=== PATIENT | female | born 1955 | race Caucasian/White ===

== ENCOUNTER 2017-03-15 09:18 | Emergency (ER) | payer BC ==
[~2017-03-15] VITALS: Ht 167.6 cm; Wt 71.0 kg
[2017-03-15 09:21] VITALS: BP 128/60; PULSE 74; RESP 16; TEMP 97.8; O2SAT 98
[2017-03-15] MEDS ORDERED: LANS30CA PO (09:44)
[2017-03-15] MEDS ORDERED: ATOR1TAB18 PO (09:44)
[2017-03-15] MEDS ORDERED: BUPR300T PO (09:44)
[2017-03-15] MEDS ORDERED: LORA1TAB12 PO (09:44)
[2017-03-15] MEDS ORDERED: ESTR0.5T PO (09:44)
[2017-03-15] MEDS ORDERED: LORazepam 2 MG/ML VIAL IV PUSH ONE (09:45)
[2017-03-15] MEDS ORDERED: SODIUM CHLORID 0.9% 500 ML INJ 500 ML IV ONE (09:45)
[2017-03-15] MEDS ORDERED: SODIUM CHLORIDE 0.9% FLUSH 10 ML FLUSH IVF PRN (09:45)
[2017-03-15 09:48] VITALS: BP 151/60; PULSE 77; RESP 18; O2SAT 98
[2017-03-15 09:49] VITALS: O2SAT 98
--- NOTE | 2017-03-15 09:52 | PD ---
HPI Chief Complaint: Respiratory Symptoms Time Seen by Provider: 09:28 Travel History International Travel<30 days: No Contact w/Intl Traveler<30days: No Traveled to known affect area: No History of Present Illness HPI This is a 61-year-old woman who presents to the emergency department complaining of waking up with a burning sensation in her chest and radiates to both arms and her back between her shoulder blades. She states she gets it in the mornings, maybe 10 times or so in the past 6 weeks. Normally resolves on its own. She started getting symptoms like this all the way back in November. On December 12 for she went [place] for the same symptoms and had a nuclear stress test that was negative. In general she's felt very rundown and exhausted recently. She fortunately lost her sister just recently in the past several weeks. Her sister following a cardiac bypass. The patient has been dealing with her state, has a history of depression and anxiety, and is been having worsening depression and anxiety symptoms associated with this. She's also had some feelings of heart pounding and palpitations during the day. She does have a history of CAD with previous stent. She follows with Dr. Jang. She does have a history of gastritis, she's had some worsening reflux symptoms recently. She does take a PPI daily. No history of ulcer disease. History Past Medical History Narrative Medical CAD Depression/anxiety Hyperlipidemia Social History Alcohol Use: Yes (wine on rare occasion) Tobacco Use: No (quit 40 years ago) Allergies-Medications (Allergen,Severity, Reaction): Coded Allergies: No Known Allergies (Unverified , 03/15/17) Reported Meds & Prescriptions Reported Meds & Active Scripts Active Reported Lansoprazole 30 Mg Capdr 30 Mg PO DAILY Lorazepam 1 Mg Tab 1 Mg PO BID Atorvastatin (Atorvastatin Calcium) 80 Mg Tab 80 Mg PO HS Estradiol 0.5 Mg Tab 0.5 Mg PO DAILY Bupropion HCl ER 24 HR (Bupropion HCl) 300 Mg Tab 300 Mg PO DAILY Review of Systems Except as stated in HPI: all other systems reviewed are Neg Physical Exam Narrative GENERAL: 60 year-old woman, no acute distress. SKIN: Focused skin assessment warm/dry. HEAD: Atraumatic. Normocephalic. CARDIOVASCULAR: Regular rate and rhythm. No murmur appreciated. Symmetric peripheral pulses. RESPIRATORY: No accessory muscle use. Clear to auscultation. Breath sounds equal bilaterally. GASTROINTESTINAL: Abdomen soft, non-tender, nondistended. Hepatic and splenic margins not palpable. MUSCULOSKELETAL: No obvious deformities. No clubbing. No cyanosis. No edema. NEUROLOGICAL: Awake and alert. No obvious cranial nerve deficits. Motor grossly within normal limits. Normal speech. PSYCHIATRIC: Anxious and tearful. Data Data Last Documented VS Vital Signs Date Time Temp Pulse Resp B/P Pulse Ox O2 Delivery O2 Flow Rate FiO2 03/15/17 10:53 68 16 128/53 98 Room Air 03/15/17 09:21 97.8 Orders Electrocardiogram (03/15/17 09:43) Complete Blood Count With Diff (03/15/17 09:43) Comprehensive Metabolic Panel (03/15/17 09:43) Magnesium (Mg) (03/15/17 09:43) Troponin I (03/15/17 09:43) Lipase (03/15/17 09:43) Chest, Single Ap (03/15/17 09:43) Ecg Monitoring (03/15/17 09:43) Bilateral Bp Monitoring (03/15/17 09:43) Iv Access Insert/Monitor (03/15/17 09:43) Oximetry (03/15/17 09:43) Oxygen Administration (03/15/17 09:43) Sodium Chloride 0.9% Flush (Ns Flush) (03/15/17 09:45) Sodium Chlorid 0.9% 500 Ml Inj (Ns 500 M (03/15/17 09:45) Lorazepam Inj (Ativan Inj) (03/15/17 09:45) Labs Laboratory Tests Test 03/15/17 10:03 White Blood Count 6.9 TH/MM3 Red Blood Count 4.57 MIL/MM3 Hemoglobin 13.1 GM/DL Hematocrit 39.7 % Mean Corpuscular Volume 86.8 FL Mean Corpuscular Hemoglobin 28.8 PG Mean Corpuscular Hemoglobin 33.2 % Concent Red Cell Distribution Width 13.5 % Platelet Count 221 TH/MM3 Mean Platelet Volume 8.7 FL Neutrophils (%) (Auto) 65.1 % Lymphocytes (%) (Auto) 27.3 % Monocytes (%) (Auto) 5.9 % Eosinophils (%) (Auto) 0.6 % Basophils (%) (Auto) 1.1 % Neutrophils # (Auto) 4.5 TH/MM3 Lymphocytes # (Auto) 1.9 TH/MM3 Monocytes # (Auto) 0.4 TH/MM3 Eosinophils # (Auto) 0.0 TH/MM3 Basophils # (Auto) 0.1 TH/MM3 CBC Comment AUTO DIFF Differential Comment AUTO DIFF CONFIRMED Sodium Level 143 MEQ/L Potassium Level 4.1 MEQ/L Chloride Level 108 MEQ/L Carbon Dioxide Level 26.9 MEQ/L Anion Gap 8 MEQ/L Blood Urea Nitrogen 16 MG/DL Creatinine 0.57 MG/DL Estimat Glomerular Filtration 107 ML/MIN Rate Random Glucose 89 MG/DL Calcium Level 9.1 MG/DL Magnesium Level 2.4 MG/DL Total Bilirubin 0.7 MG/DL Aspartate Amino Transf 20 U/L (AST/SGOT) Alanine Aminotransferase 26 U/L (ALT/SGPT) Alkaline Phosphatase 86 U/L Troponin I LESS THAN 0.02 NG/ML Total Protein 6.7 GM/DL Albumin 3.6 GM/DL Lipase 113 U/L MDM Medical Decision Making Medical Screen Exam Complete: Yes Emergency Medical Condition: Yes Interpretation(s) My review of EKG: Normal sinus rhythm at a rate of 70, normal axis, normal intervals, no acute ischemia. LABS: CBC is unremarkable. CMP is unremarkable. Troponins negative. Lipase is normal. Chest x-ray: No acute cardiopulmonary disease. Differential Diagnosis Anxiety, gastritis, ACS, pericarditis, hepatobiliary disease, pancreatitis, dissection, PE, other Narrative Course Medical decision making Is a 60 year-old woman presents emergency Department with burning discomfort in her chest a radius her arms. She's had this several times over the past several weeks. She's had a stress test with for the same symptoms that was negative. She looks well. She is under a lot of stress. She has also a history of anxiety and gastritis or reflux. We'll get results of her stress test from the [facility]. We'll recheck EKG and labs. She looks overall well. She does not have any history of exertional symptoms that would strongly suggest ACS. Suspicious this is probably GI and/or anxiety related. We'll discuss close outpatient follow-up with cardiology pending results of initial testing. Diagnosis Primary Impression: Burning chest pain Additional Impression: Gastritis Qualified Code: K29.00 - Acute gastritis without hemorrhage, unspecified gastritis type Additional Instructions: Return to the emergency department for any worsening chest pain, or any chest pain with exertion. Follow-up with Dr. Jang in the next 2-4 days. Continue current medications. Take sucralfate as prescribed. Med/Other Pt SpecificInfo: Prescription(s) given Scripts Sucralfate 1 Gm Tab1 Gm PO TID #90 TAB Ref 0 on empty stomach Prov:Kyaw Crump MD 03/15/17 Disposition: 01 DISCHARGE HOME Condition: Stable Kyaw Crump MD Mar 15, 2017 09:52
--- NOTE | 2017-03-15 10:08 | RADRPT ---
EXAM DATE/TIME: 03/15/2017 09:58 [facility] COMPARISON: No previous studies available for comparison. INDICATIONS : Short of breath. Burning in the chest. MEDICAL HISTORY : Hypercholesterolemia. Gastroesophageal reflux disease. SURGICAL HISTORY : Cardiac cath w/ stent placement ENCOUNTER: Initial ACUITY: 2 weeks PAIN SCORE: 7/10 LOCATION: chest FINDINGS: A single view of the chest demonstrates the lungs to be symmetrically aerated without evidence of mas s, infiltrate or effusion. The cardiomediastinal contours are unremarkable. Osseous structures are intact. CONCLUSION: 1. No acute cardiopulmonary disease. Jason Ramirez MD on March 15, 2017 at 10:06 Board Certified Radiologist. This report was verified electronically.
[2017-03-15 10:09] LABS: AUTOMATED NEUTROPHIL # 4.5 TH/MM3 (1.8-7.7); BASOPHIL # 0.1 TH/MM3 (0-0.2); BASOPHIL % 1.1 % (0.0-2.0); EOSINOPHIL % 0.6 % (0.0-4.0); HEMATOCRIT 39.7 % (35.0-46.0); LYMPH % 27.3 % (9.0-44.0); LYMPHOCYTE # 1.9 TH/MM3 (1.0-4.8); MEAN CELL VOLUME 86.8 FL (80.0-100.0); MEAN CORPUSCULAR HEMOGLOBIN 28.8 PG (27.0-34.0); MEAN CORPUSCULAR HGB CONC 33.2 % (32.0-36.0); MONO % 5.9 % (0.0-8.0); NEUT % 65.1 % (16.0-70.0); PLATELET COUNT 221 TH/MM3 (150-450); RED BLOOD COUNT 4.57 MIL/MM3 (4.00-5.30); RED CELL DISTRIBUTION WIDTH 13.5 % (11.6-17.2); WHITE BLOOD COUNT 6.9 TH/MM3 (4.0-11.0)
[2017-03-15 10:10] LABS: HEMO FLAGS AUTO DIFF
[2017-03-15 10:18] LABS: CHLORIDE 108 MEQ/L (98-107); POTASSIUM 4.1 MEQ/L (3.5-5.1); SODIUM (NA) 143 MEQ/L (136-145)
[2017-03-15 10:22] LABS: ANION GAP 8 MEQ/L (5-15); BICARBONATE 26.9 MEQ/L (21.0-32.0); BLOOD UREA NITROGEN 16 MG/DL (7-18); MAGNESIUM 2.4 MG/DL (1.5-2.5)
[2017-03-15 10:24] LABS: ALT (GPT) 26 U/L (10-53); AST (GOT) 20 U/L (15-37)
[2017-03-15 10:25] LABS: GLOMERULAR FILTRATION RATE 107 ML/MIN (>89)
[2017-03-15 10:26] LABS: TOTAL BILIRUBIN ADULT 0.7 MG/DL (0.2-1.0)
[2017-03-15 10:27] LABS: ALKALINE PHOSPHATASE 86 U/L (45-117)
[2017-03-15 10:44] LABS: SCAN/DIFF AUTO DIFF CONFIRMED
[2017-03-15 10:53] VITALS: BP 128/53; PULSE 68; RESP 16; O2SAT 98
[2017-03-15] MEDS ORDERED: SUCR1TAB PO (11:01)
--- NOTE | 2017-03-15 12:13 | EKG ---
Date Performed: 03/15/2017 Time Performed: 09:51:58 PTAGE: 61 years EKG: Sinus rhythm NORMAL ECG NO PREVIOUS TRACING DOCTOR: Jh Toscano Interpretating Date/Time 03/15/2017 12:12:03
== END 2017-03-15 11:48 | disposition home or self-care (01) ==
LOC: PHED 09:18
DX: R07.9 Chest pain, unspecified (principal); K29.00 Acute gastritis without bleeding; F41.8 Other specified anxiety disorders; E78.5 Hyperlipidemia, unspecified
CPT/HCPCS: 71010; 80053; 83690; 83735; 84484; 85025; 93005; 96361; 96374; 99285; J2060; J7040

== ENCOUNTER → 2017-10-24 | Outpatient (CLI) | payer BC ==
[~2017-10-24] MED LIST: ASPI81CH6 CHEW; ASPI81TA23 PO; ATOR80TA45 PO; BUPR300T PO; ESTR0.5T PO; HYDR-3288 PO; LANS30CA PO; LORA1TAB12 PO; MULT-65 PO; PROT40TA PO; SUCR1TAB PO
== END ==
LOC: CPRE 11:36
PROVIDERS: ATTEND Orthopaedic Surgery Sports Medicine
DX: Z01.818 Encounter for other preprocedural examination (principal); M17.12 Unilateral primary osteoarthritis, left knee

== ENCOUNTER 2017-11-07 05:24 | Inpatient (IN) | payer BC ==
[~2017-11-07] VITALS: Ht 167.6 cm; Wt 70.9 kg
[~2017-11-07 05:24] MED LIST changes: -ASPI81CH6 CHEW; -ESTR0.5T PO; -HYDR-3288 PO; -LANS30CA PO; -SUCR1TAB PO
[2017-11-07] MEDS ORDERED: POVIDONE IODINE 7.5% SCRUB 118 ML BOTTLE TOPICAL SCH (06:00)
[2017-11-07] MEDS ORDERED: CHLORHEXIDINE GLUCONATE 4% SOLN 120 ML BTL TOPICAL SCH (06:00)
[2017-11-07] MEDS ORDERED: VANCOMYCIN 1000 MG/NS 250 ML (for <70 kg) IV SCH ×2 (06:00)
[2017-11-07] MEDS ORDERED: DEXAMETHASONE SOD PHOS PF 10 MG/ML VIAL IV PUSH ONE (06:00)
[2017-11-07] MEDS ORDERED: GENTAMICIN SULFATE 80 MG/2 ML VIAL ONE (06:15)
[2017-11-07] MEDS ORDERED: VANCOMYCIN 1 GM/200 ML INJ 200 ML IV SCH (06:15)
[2017-11-07] MEDS ORDERED: ACETAMINOPHEN 1000 MG/100 ML 100 ML IV ONE (06:56)
[2017-11-07] MEDS ORDERED: PROPOFOL 500 MG/50 ML INJ 0 ML ONE (06:57)
[2017-11-07] MEDS ORDERED: HYDR-3288 PO (06:57)
[2017-11-07] MEDS ORDERED: ASPI81CH6 CHEW (06:58)
[2017-11-07] MEDS ORDERED: ONDANSETRON HCL 4 MG/2 ML VIAL IVP PRN (07:00)
[2017-11-07] MEDS ORDERED: Post-op Orders (for Pharmacy) XX ONE (07:00)
[2017-11-07] MEDS ORDERED: MORPHINE SULFATE 4 MG/ML INJ IV PUSH PRN (07:00)
[2017-11-07] MEDS ORDERED: BISACODYL 10 MG SUPP RECTAL PRN (07:00)
[2017-11-07] MEDS ORDERED: ACETAMINOPHEN/HYDROcodone 325 MG/7.5 MG TAB PO PRN (07:00)
[2017-11-07] MEDS ORDERED: diphenhydrAMINE HCL 50 MG/ML VIAL IV PUSH PRN (07:00)
[2017-11-07 07:26] VITALS: PULSE 68
[2017-11-07] MEDS ORDERED: METOPROLOL TARTRATE 25 MG TAB PO PRN (07:30)
[2017-11-07] MEDS ORDERED: LACTATED RINGER'S 1000 ML IV PRN (07:30)
[2017-11-07] MEDS ORDERED: CEFAZOLIN INJ 2,000 MG in SODIUM CHLORIDE 0.9% INJ 100 ML IV SCH (07:30)
[2017-11-07] MEDS ORDERED: SODIUM CHLORID 0.9% 500 ML IV PRN (07:30)
[2017-11-07] MEDS ORDERED: BUPIVACAINE LIPOSOME PF 1.3% 20 ML VIAL ONE (07:34)
[2017-11-07] MEDS ORDERED: MIDAZOLAM HCL 5 MG/5 ML VIAL ONE (07:34)
[2017-11-07] MEDS ORDERED: SODIUM CHLORIDE 0.9% IV SCH (08:30)
[2017-11-07] MEDS ORDERED: ROPIVACAINE PERI-ARTICULAR INJECTION. P-ARTICULR SCH ×5 (08:30)
[2017-11-07] MEDS ORDERED: TRANEXAMIC ACID IV SCH (08:30)
[2017-11-07] MEDS ORDERED: TRANEXAMIC PERI-ARTICULAR 3,000 MG/NS 100 ML P-ARTICULR SCH ×2 (08:30)
[2017-11-07] MEDS ORDERED: DO NOT ADM ANY ANTICOAGULANT DRUGS PRN (10:09)
--- NOTE | 2017-11-07 10:20 | MP ---
cc: Kristopher Canseco MD DATE OF OPERATION: 11/07/2017 PREOPERATIVE DIAGNOSIS: Left knee osteoarthritis. POSTOPERATIVE DIAGNOSIS: Left knee osteoarthritis. PROCEDURE PERFORMED: Left total knee arthroplasty. SURGEON: Kristopher Canseco MD, UNLOADING CHECKER: RUBI Benavidez. ANESTHESIA: General with a femoral nerve block. ESTIMATED BLOOD LOSS: 100 mL. TOURNIQUET TIME: 21 minutes at 250 mmHg. COMPLICATIONS: None. IMPLANTS USED: DePuy Attune size 6 narrow posterior stabilized femoral component, size 5 rotating platform tibial baseplate, size 5 mm polyethylene tibial insert, size 38 patella. JUSTIFICATION: This patient is a 62-year-old female with a history of severe end-stage osteoarthritis involving the left knee. She has severe disabling pain with standing, walking, ambulation, weightbearing activities and severe pain at rest. She has failed greater than 3 months of nonoperative conservative treatment to including medication therapy, injections, ambulatory assisted aid, home exercise program, activity modification, weight loss. X-ray of the left knee reveals severe end-stage osteoarthritis with joint space narrowing, subchondral sclerosis, subchondral cyst, osteophyte formation with subluxation and deformity. The patient counseled on the risks, benefits and alternatives of a total knee arthroplasty. The risks discussed, which include, but are not limited to anesthesia, bleeding, infection, damage to nerves, blood vessels, pain, stiffness, failure of components, blood clots, pulmonary embolism and even . The patient's pain is severe. She favors the benefits over the risks and she did wish to proceed with surgery. DETAILS OF PROCEDURE: Written consent was obtained. The patient identified by name, taken to the operating room, placed supine on the operating room table. General anesthesia was administered as well as 2 grams of IV Ancef and 1 gram of IV vancomycin. A well-padded tourniquet was placed on the left thigh. The left lower extremity prepped and draped using Isopropyl alcohol, Hibiclens solution and ChloraPrep solution. After a time-out was performed, an Esmarch bandage was used to exsanguinate the left lower extremity. The tourniquet was inflated to 250 mmHg. A longitudinal incision made over the anterior aspect of the left knee. A medial parapatellar arthrotomy was performed. The patella was everted. A patellar resection guide was used to resect 9 mm of patella. A size 38 mm guide was placed and three drills were placed and a 38 mm trial fit well. Attention was turned to the femur where intramedullary guide was placed and the distal femoral guide was set to remove 10 mm of distal femur, 5 degrees off the anatomic valgus axis alignment. An oscillating saw was used to perform the distal femoral cut. Attention was turned to the tibia where an extramedullary tibial guide was set to remove 5 mm off the lowest portion of the medial tibial plateau. The tibial guide was pinned in place and the tibial cut was performed. A 5 mm spacer block showed full extension. Attention was turned back to the femur where the AP sizing block measured a size 6. The anterior reference 3-degree external rotation guide was used to pin the size [address] Anterior, posterior and chamfer cuts were performed. A size 6 PCL box icer was pinned in place and the PCL was box cut with an oscillating saw. The medial and lateral meniscus remnants were removed, as well as bone and soft tissue debris from the posterior portion of the knee. A size 5 tibial base was pinned in place and tibia was drilled and punched. Trial components were evaluated and final components cemented in place. With the current components, the leg could achieve full extension to 0 degrees, flexion to 140. No evidence of tibial liftoff. Varus valgus balance appeared appropriate and symmetric. With the tourniquet deflated, Bovie cautery was used for hemostasis. The surgical wound was thoroughly irrigated with sterile saline antibiotic impregnated solution. The arthrotomy incision closed with #1 Vicryl suture, subcutaneous layer with 2-0 Vicryl, skin was closed with Dermabond. Sterile dressings applied. The patient tolerated the procedure well with no intraoperative complications noted. Andrés Branham, Physician Pediatric Licensed Practical Nurse Certified was present for the entire procedure to include patient positioning and the procedure itself. The medical necessity of a physician personnel security assistant was indicated in this case due to the complexity of the procedure. He assisted with appropriate manipulation of the leg and also retraction of muscles, tendons, bone and neurovascular structures. He assisted in preparation bone and also implantation of the prosthetic replacement. Kristopher Canseco MD JWM/ERNESTO , 09:46 AM , 10:19 AM
[2017-11-07] MEDS ORDERED: *morphine SULFATE 8 MG/ML PERIprocedure ONLY ONE ×2 (10:41→10:57)
--- NOTE | 2017-11-07 10:51 | RADRPT ---
EXAM DATE/TIME: 11/07/2017 10:19 [facility] COMPARISON: No previous studies available for comparison. INDICATIONS : Post op left arthroplasty. MEDICAL HISTORY : Hypercholesterolemia. Gastroesophageal reflux disease. SURGICAL HISTORY : Cardiac cath w/ stent placement. ENCOUNTER: Initial ACUITY: 1 day PAIN SCORE: Non-responsive. LOCATION: Left knee FINDINGS: AP and lateral views of the left knee were obtained and demonstrate that the patient is status post t otal knee arthroplasty. The femoral and tibial components are intact and in normal alignment. There a re postoperative changes involving the patella. There are multiple areas of gas in the adjacent soft tissues with soft tissue swelling. There is mild overlying artifact. CONCLUSION: Expected postsurgical changes status post arthroplasty. Edgar Bonds MD on November 07, 2017 at 10:47 Board Certified Radiologist. This report was verified electronically.
[2017-11-07] MEDS: SODIUM CHLOR 0.9% 1000 ML INJ 1,000 ML IV SCH ×2 (11:00→18:30)
--- NOTE | 2017-11-07 12:47 | HHI.DCPOC ---
Discharge Care Plan Diagnosis: (1) Primary localized osteoarthrosis, lower leg Your Health Problems Are: Difficulty with ADL Goals to Promote Your Health * To prevent worsening of your condition and complications * To maintain your health at the optimal level Directions to Meet Your Goals Take your medications as prescribed Follow your dietary instruction Follow activity as directed Keep your appointments as scheduled Take your immunizations and boosters as scheduled If your symptoms worsen call your PCP, if no PCP go to Urgent Care Center or Emergency Room Smoking is Dangerous to Your Health. Avoid second hand smoke Call the 24-hour hour crisis hotline for domestic abuse at Kristopher Branham Nov 07, 2017 12:47
--- NOTE | 2017-11-07 13:01 | PD.CONS ---
HPI Service [facility] Consult Requested By DR GARY WOLFE MD Reason for Consult MEDICAL MANAGEMENT Primary Care Physician Brian Robbins M.D. Diagnoses: (1) Anxiety (2) Depression (3) GERD (gastroesophageal reflux disease) (4) Primary localized osteoarthrosis, lower leg (5) Gastritis (6) CAD (coronary artery disease) (7) Hypercholesterolemia History of Present Illness Patient is a 62-year-old female, Who underwent left total knee arthroplasty due to severe osteoarthritis. Patient has a past medical history including an extensive history of coronary artery disease with stent, hyperlipidemia, GERD, anxiety, depression, and osteoarthritis. We have been asked to see her regarding medical management. Her primary care physician does not come to the hospital Review of Systems Constitutional: DENIES: Diaphoretic episodes, Fatigue, Fever, Weight gain, Weight loss, Chills, Dizziness, Change in appetite, Night Sweats Endocrine: DENIES: Abnorml menstrual pattern, Heat/cold intolerance, Polydipsia Eyes: DENIES: Blurred vision, Diplopia, Eye inflammation, Eye pain, Vision loss , Photosensitivity Ears, nose, mouth, throat: DENIES: Tinnitus, Hearing loss, Vertigo, Nasal discharge, Oral lesions, Throat pain, Hoarseness, Odynophagia Respiratory: DENIES: Apneas, Cough, Snoring, Wheezing, Hemoptysis, Sputum production, Shortness of breath Cardiovascular: DENIES: Chest pain, Palpitations, Syncope, Dyspnea on Exertion , PND, Lower Extremity Edema, Orthopnea Gastrointestinal: DENIES: Abdominal pain, Black stools, Bloody stools, Constipation, Diarrhea, Nausea, Vomiting, Difficulty Swallowing Genitourinary: DENIES: Abnormal vaginal bleeding, Dysmenorrhea, Dyspareunia, Vaginal discharge Musculoskeletal: COMPLAINS OF: Joint pain, Back pain, DENIES: Muscle aches, Stiffness, Joint Swelling, Neck pain Integumentary: DENIES: Abnormal pigmentation, Pruritus, Rash, Nail changes, Breast masses, Breast skin changes Hematologic/lymphatic: DENIES: Bruising, Lymphadenopathy Immunologic/allergic: DENIES: Eczema, Urticaria Neurologic: DENIES: Abnormal gait, Headache, Localized weakness, Paresthesias, Seizures, Speech Problems, Tremor, Poor Balance Psychiatric: COMPLAINS OF: Anxiety, Depression, DENIES: Confusion, Mood changes , Hallucinations, Agitation, Suicidal Ideation, Homicidal Ideation, Delusions Except as stated in HPI: all other systems reviewed are Neg Past Family Social History Allergies: Coded Allergies: No Known Allergies (Verified Allergy, Unknown, 11/07/17) Past Medical History Coronary artery disease with history of stenting. Hypercholesterolemia GERD depression Anxiety Past Surgical History Tonsillectomy Stenting of the coronary artery Bilateral cataract surgery Cholecystectomy Appendectomy Hysterectomy Left hand surgery due to a cat bite Reported Medications Reported Meds & Active Scripts Active Aspirin Low Dose (Aspirin) 81 Mg Chew 81 Mg CHEW BID 30 Days [place] (Hydrocodone-Acetaminophen) 7.5-325 mg Tab 1-2 Tab PO Q6H PRN Reported Multi-Vitamin Daily (Multiple Vitamin) 1 Tab Tab 1 Tab PO DAILY Protonix (Pantoprazole Sodium) 40 Mg Tab 40 Mg PO DAILY Aspirin EC (Aspirin) 81 Mg Tabdr 81 Mg PO DAILY Lorazepam 1 Mg Tab 1 Mg PO BID Atorvastatin (Atorvastatin Calcium) 80 Mg Tab 80 Mg PO HS Bupropion HCl ER 24 HR (Bupropion HCl) 300 Mg Tab 300 Mg PO DAILY Active Ordered Medications Current Medications Povidone Iodine (Betadine 7.5% Scrub) 1 applic ONCE TOPICAL Last administered on 11/07/17at 06:30; Start 11/07/17 at 06:00; Stop 11/10/17 at 05:59 Chlorhexidine Gluconate (Hibiclens 4% Top Soln) 1 applic ONCE TOPICAL ; Start at 06:00; Stop 11/10/17 at 05:59 Dexamethasone Sodium Phosphate (Decadron Pf Inj) 10 mg ONCE ONCE IV PUSH Last administered on 11/07/17at 07:12; Start 11/07/17 at 06:00; Stop 11/07/17 at 06:01 ; Status DC Cefazolin Sodium 2000 mg/Sodium Chloride 120 ml @ 240 mls/hr PHOTOGRAPHER HELPER IV Last administered on 11/07/17at 08:10; Start 11/07/17 at 07:30; Stop 11/08/17 at 07:29 Vancomycin HCl 1000 mg/Sodium Chloride 250 ml @ 250 mls/hr PHOTOGRAPHER HELPER IV ; Start 11/07/17 at 06:00; Stop 11/10/17 at 05:59; Status Cancel Tranexamic Acid 1064 mg/Sodium Chloride 110.64 ml @ 200 mls/ hr ONCE IV Last administered on 11/07/17at 08:27; Start 11/07/17 at 08:30; Stop 11/07/17 at 14:30 Tranexamic Acid 3000 mg/Sodium Chloride 130 ml @ 260 mls/hr ONCE P-ARTICULR Last administered on 11/07/17at 08:58; Start 11/07/17 at 08:30; Stop 11/07/17 at 14:30 Vancomycin/Sodium Chloride 200 ml @ 250 mls/hr PHOTOGRAPHER HELPER IV Last administered on 11/07/17at 08:05; Start 11/07/17 at 06:15; Stop 11/08/17 at 06:14 Ropivacaine 24.63 ml/Ketorolac Tromethamine 30 mg/Epinephrine HCl 0.5 mg/ Clonidine 80 mcg/ Sodium Chloride 100 ml @ 200 mls/hr ONCE P-ARTICULR Last administered on 11/07/17at 08:58; Start 11/07/17 at 08:30; Stop 11/07/17 at 14:30 Gentamicin Sulfate (Gentamicin Inj) 240 mg STK-MED ONCE .ROUTE Last administered on 11/07/17at 08:58; Start 11/07/17 at 06:15; Stop 11/07/17 at 06:16 ; Status DC Atorvastatin Calcium (Lipitor) 80 mg HS PO ; Start 11/07/17 at 21:00 Bupropion HCl (Wellbutrin Sr) 150 mg BID PO ; Start 11/08/17 at 09:00 Lorazepam (Ativan) 1 mg BID PO ; Start 11/07/17 at 21:00 Pantoprazole Sodium (Protonix) 40 mg DAILY PO ; Start 11/08/17 at 09:00 Sodium Chloride 1,000 ml @ 100 mls/hr Q10H IV Last administered on 11/07/17at 11:00; Start 11/07/17 at 08:30 Cefazolin Sodium 1000 mg/Sodium Chloride 100 ml @ 200 mls/hr Q6H IV ; Start at 14:00; Stop 11/08/17 at 02:29 Miscellaneous Information (Post-op Orders (for Pharmacy)) STAT ONCE XX ; Start 11/07/17 at 07:00; Stop 11/07/17 at 08:16; Status DC Enoxaparin Sodium (Lovenox Inj) 40 mg Q24H SQ ; Start 11/08/17 at 09:00; Stop at 09:01 Morphine Sulfate (Morphine Inj) 3 mg Q3H PRN IV PUSH Pain >7 when off PROCUREMENT INTERN; Start 11/07/17 at 07:00 Acetaminophen/ Hydrocodone Bitart ([place] 7.5-325 Mg) 1 tab Q4H PRN PO PAIN LESS THAN 5 ON SCALE; Start 11/07/17 at 07:00 Acetaminophen/ Hydrocodone Bitart ([place] 7.5-325 Mg) 2 tab Q4H PRN PO PAIN SCALE 5 TO 10; Start 11/07/17 at 07:00 Multivitamins/ Minerals Therapeutic (Theragran M Tab) 1 tab BID PO ; Start 11/08 at 21:00; Stop 01/07/18 at 20:59 Ondansetron HCl (Zofran Inj) 4 mg Q6H PRN IVP NAUSEA OR VOMITING; Start at 07:00 Docusate Sodium (Colace) 100 mg BID PO ; Start 11/08/17 at 21:00 Zolpidem Tartrate (Ambien) 5 mg HS PRN PO SLEEP; Start 11/07/17 at 21:00 Bisacodyl (Dulcolax Supp) 10 mg DAILY PRN RECTAL CONSTIPATION; Start 11/07/17 at 07:00 Diphenhydramine HCl (Benadryl Inj) 25 mg Q6H PRN IV PUSH ITCHING; Start at 07:00 Acetaminophen 100 ml @ As Directed STK-MED ONCE IV ; Start 11/07/17 at 06:56; Stop 11/07/17 at 06:57; Status DC Propofol 0 ml @ As Directed STK-MED ONCE .ROUTE ; Start 11/07/17 at 06:57; Stop 11/07/17 at 06:58; Status DC Lactated Ringer's 1,000 ml @ 30 mls/hr Q24H PRN IV SEE LABEL COMMENTS Last administered on 11/07/17at 06:40; Start 11/07/17 at 07:30; Stop 11/10/17 at 07:29 Sodium Chloride 500 ml @ 30 mls/hr [id number] PRN IV SEE LABEL COMMENTS; Start at 07:30; Stop 11/10/17 at 07:29 Metoprolol Tartrate (Lopressor) 25 mg PHOTOGRAPHER HELPER PRN PO SEE LABEL COMMENTS; Start 11/07/17 at 07:30; Stop 11/10/17 at 07:29 Midazolam HCl (Versed Inj) 5 mg STK-MED ONCE .ROUTE ; Start 11/07/17 at 07:34; Stop 11/07/17 at 07:35; Status DC Bupivacaine Liposome (Exparel Pf 1.3% Inj) 20 ml STK-MED ONCE .ROUTE ; Start at 07:34; Stop 11/07/17 at 07:35; Status DC Fentanyl Citrate (fentaNYL INJ) 200 mcg STK-MED ONCE .ROUTE ; Start 11/07/17 at 10:19; Stop 11/07/17 at 10:20; Status DC Morphine Sulfate (*morphine INJ PERIprocedure ONLY) 8 mg STK-MED ONCE .ROUTE Last administered on 11/07/17at 10:41; Start 11/07/17 at 10:41; Stop 11/07/17 at 10:42; Status DC Morphine Sulfate (*morphine INJ PERIprocedure ONLY) 8 mg STK-MED ONCE .ROUTE Last administered on 11/07/17at 10:57; Start 11/07/17 at 10:57; Stop 11/07/17 at 10:58; Status DC Family History Heart disease in paternal grandfather Diabetes mellitus in maternal grandmother Malignant neoplastic disease in father Alzheimer's disease in mother Heart disease in maternal grandfather and paternal grandmother Social History Lives alone Does not smoke Does not drink Denies any illicit Physical Exam Vital Signs Vital Signs Date Time Temp Pulse Resp B/P (MAP) Pulse Ox O2 Delivery O2 Flow Rate FiO2 11/07/17 11:02 15 11/07/17 11:00 97.6 70 16 116/56 (76) 96 Nasal Cannula 2 11/07/17 10:46 15 11/07/17 10:45 75 15 123/59 (80) 95 Nasal Cannula 2 11/07/17 10:30 82 15 121/57 (78) 95 Nasal Cannula 2 11/07/17 10:15 89 15 120/58 (78) 100 Nasal Cannula 3 11/07/17 10:05 97.5 97 14 115/55 (75) 99 Nasal Cannula 3 11/07/17 07:26 68 11/07/17 07:26 98 Nasal Cannula 2 11/07/17 06:55 97.0 74 16 122/52 (75) 97 Physical Exam GENERAL: This is a well-nourished, well-developed patient, in no apparent distress. SKIN: No rashes, ecchymoses or lesions. Cool and dry. HEAD: Atraumatic. Normocephalic. No temporal or scalp tenderness. EYES: Pupils equal round and reactive. Extraocular motions intact. No scleral icterus. No injection or drainage. ENT: Nose without bleeding, purulent drainage or septal hematoma. Throat without erythema, tonsillar hypertrophy or exudate. Uvula midline. Airway patent. NECK: Trachea midline. No JVD or lymphadenopathy. Supple, nontender, no meningeal signs. CARDIOVASCULAR: Regular rate and rhythm without murmurs, gallops, or rubs. S1- S2 no S3 or S4 RESPIRATORY: Clear to auscultation. Breath sounds equal bilaterally. No wheezes , rales, or rhonchi. GASTROINTESTINAL: Abdomen soft, non-tender, nondistended. No hepato-splenomegaly , or palpable masses. No guarding. MUSCULOSKELETAL: Extremities without clubbing, cyanosis, or edema. No joint tenderness, effusion, or edema noted. No calf tenderness. Negative Homans sign bilaterally. Left lower extremity is in CPM machine NEUROLOGICAL: Awake and alert. Cranial nerves II through XII intact. Motor and sensory grossly within normal limits. Five out of 5 muscle strength in all muscle groups. Normal speech. Insight and judgment is good Mood behaviors appropriate Assessment and Plan Problem List: (1) Primary localized osteoarthrosis, lower leg ICD Code: M17.10 - Unilateral primary osteoarthritis, unspecified knee (2) Gastritis ICD Code: K29.70 - Gastritis, unspecified, without bleeding Status: Acute (3) Hypercholesterolemia ICD Code: E78.00 - Pure hypercholesterolemia, unspecified (4) CAD (coronary artery disease) ICD Code: I25.10 - Atherosclerotic heart disease of [place] coronary artery without angina pectoris (5) GERD (gastroesophageal reflux disease) ICD Code: K21.9 - Gastro-esophageal reflux disease without esophagitis (6) Depression ICD Code: F32.9 - Major depressive disorder, single episode, unspecified (7) Anxiety ICD Code: F41.9 - Anxiety disorder, unspecified Assessment and Plan Status post left total knee arthroplasty due to severe osteoarthritis We will defer anticoagulation and pain control to orthopedics Depression and anxiety continue on her home medications GERD continue on her PPI Hypercholesterolemia continue on her home medication Coronary artery disease with history of stent Continue GI and DVT prophylaxis A.m. labs Physical therapy and occupational therapy to eval and treat Code Status Full code Discussed Condition With RN and patient Bridger Mulligan DO Nov 07, 2017 13:01
[2017-11-07] MEDS ORDERED: *ONDANSETRON 4 MG VIAL PERIprocedural Use ONLY ONE (13:52)
[2017-11-07] MEDS ORDERED: cloNIDine HCL 0.1 MG TAB PO PRN (14:00)
[2017-11-07 20:00] VITALS: BP 104/57; PULSE 73; RESP 17; TEMP 97.8; O2SAT 96
[2017-11-07] MEDS: LORazepam 1 MG TAB PO SCH (20:32)
[2017-11-07] MEDS ORDERED: ZOLPIDEM TARTRATE 5 MG TAB PO PRN (21:00)
[2017-11-07] MEDS ORDERED: ATORVASTATIN 80 MG TAB PO SCH (21:00)
[2017-11-08 00:15] VITALS: BP 92/55; PULSE 65; RESP 17; TEMP 97.8; O2SAT 98
[2017-11-08] MEDS: SODIUM CHLOR 0.9% 1000 ML INJ 1,000 ML IV SCH (03:48)
[2017-11-08 04:30] VITALS: BP 106/52; PULSE 73; RESP 17; TEMP 98; O2SAT 99
[2017-11-08 05:57] LABS: AUTOMATED NEUTROPHIL # 8.7 TH/MM3 (1.8-7.7); BASOPHIL % 0.1 % (0.0-2.0); HEMOGLOBIN 9.6 GM/DL (11.6-15.3); LYMPHOCYTE # 1.6 TH/MM3 (1.0-4.8); MEAN CELL VOLUME 87.8 FL (80.0-100.0); MEAN CORPUSCULAR HEMOGLOBIN 29.2 PG (27.0-34.0); MEAN CORPUSCULAR HGB CONC 33.3 % (32.0-36.0); MEAN PLATELET VOLUME 8.9 FL (7.0-11.0); MONO % 9.6 % (0.0-8.0); MONOCYTE # 1.1 TH/MM3 (0-0.9); NEUT % 76.3 % (16.0-70.0); PLATELET COUNT 170 TH/MM3 (150-450); RED CELL DISTRIBUTION WIDTH 12.9 % (11.6-17.2); WHITE BLOOD COUNT 11.4 TH/MM3 (4.0-11.0)
[2017-11-08 06:25] LABS: ALBUMIN 2.7 GM/DL (3.4-5.0); AST (GOT) 16 U/L (15-37); BICARBONATE 26.7 MEQ/L (21.0-32.0); BLOOD UREA NITROGEN 13 MG/DL (7-18); CALCIUM 8.1 MG/DL (8.5-10.1); CHLORIDE 108 MEQ/L (98-107); CREATININE 0.67 MG/DL (0.50-1.00); GLOMERULAR FILTRATION RATE 89 ML/MIN (>89); GLUCOSE,RANDOM 99 MG/DL (74-106); MAGNESIUM 2.1 MG/DL (1.5-2.5); SODIUM (NA) 141 MEQ/L (136-145)
[2017-11-08 06:35] LABS: ALKALINE PHOSPHATASE 52 U/L (45-117); ALT (GPT) 19 U/L (10-53); FREE T4 1.14 NG/DL (0.76-1.46); PHOSPHORUS 2.8 MG/DL (2.5-4.9); TOTAL BILIRUBIN ADULT 0.5 MG/DL (0.2-1.0); TOTAL PROTEIN 5.2 GM/DL (6.4-8.2)
[2017-11-08 08:00] VITALS: BP 100/49; PULSE 80; RESP 18; TEMP 99; O2SAT 99
--- NOTE | 2017-11-08 08:39 | PD.ORT.PN ---
Subjective Post Op Day #: 1 Subjective Remarks pain tolerable. Objective Vitals Vital Signs Date Time Temp Pulse Resp B/P (MAP) Pulse Ox O2 Delivery O2 Flow Rate FiO2 11/08/17 08:00 99.0 80 18 100/49 (66) 99 11/08/17 04:30 98.0 73 17 106/52 (70) 99 11/08/17 00:15 97.8 65 17 92/55 (67) 98 11/07/17 20:00 97.8 73 17 104/57 (73) 96 11/07/17 18:50 97.6 65 16 103/55 (71) 98 Room Air 11/07/17 18:00 66 16 102/53 (69) 97 Room Air 11/07/17 17:00 67 16 105/52 (69) 96 Room Air 11/07/17 16:00 67 16 103/57 (72) 96 Room Air 11/07/17 15:00 66 16 107/54 (71) 96 Room Air 11/07/17 14:00 65 16 110/53 (72) 95 Room Air 11/07/17 13:00 64 16 108/56 (73) 95 Room Air 11/07/17 12:00 68 16 110/54 (72) 100 Nasal Cannula 2 11/07/17 11:30 69 16 115/52 (73) 98 Nasal Cannula 2 11/07/17 11:02 15 11/07/17 11:00 97.6 70 16 116/56 (76) 96 Nasal Cannula 2 11/07/17 10:46 15 11/07/17 10:45 75 15 123/59 (80) 95 Nasal Cannula 2 11/07/17 10:30 82 15 121/57 (78) 95 Nasal Cannula 2 11/07/17 10:15 89 15 120/58 (78) 100 Nasal Cannula 3 11/07/17 10:05 97.5 97 14 115/55 (75) 99 Nasal Cannula 3 I/O 11/07/17 11/07/17 11/07/17 11/08/17 11/08/17 11/08/17 07:00 15:00 23:00 07:00 15:00 23:00 Intake Total 2240 ml 240 ml 360 ml Output Total 100 ml Balance 2140 ml 240 ml 360 ml Intake Oral 240 ml 240 ml 360 ml IV Total 2000 ml Output Estimated Blood Loss 100 ml # Voids 1 0 2 # Bowel Movements 0 Result Diagram: 11/08/1715 11/08/1715 Objective Remarks in bed, nad dressing c/d/i neg homans nvi Assessment & Plan Ortho Post Op Day #: 1 Problem List: Assessment and Plan s/p L TKA wbat ok to maintain dressing unless saturated lovenox, d/c on [id number] d/c planning home with [facility] and pt - cleared today if does well in PT rx in chart f/up dr. arora 2 weeks Kristopher Branham Nov 08, 2017 08:39
--- NOTE | 2017-11-08 08:41 | HHI.FF ---
Face to Face Verification Diagnosis: (1) Primary localized osteoarthrosis, lower leg Physical Therapy Gait training, Safety evaluation, Transfer training, bed to chair Knee: Total knee, Protocol: Left, Full weight bearing Left LE Weight Bearing: WB as tolerated Nursing RN: 3 days/week x 2 weeks Nursing: Dressing changes Dressing Changes: Daily dressing change I have seen patient Kyra Casas on 11/08/17. My clinical findings support the need for the requested home health care services because: Limited ability to care for self High risk of falls I certify that my clinical findings support that this patient is homebound because: Post-op weakness Unsteady gait/balance Kristopher Branham Nov 08, 2017 08:40
[2017-11-08] MEDS: LORazepam 1 MG TAB PO SCH (08:42)
[2017-11-08] MEDS: ACETAMINOPHEN/HYDROcodone 325 MG/7.5 MG TAB PO PRN ×2 (08:52→12:46)
[2017-11-08] MEDS ORDERED: buPROPion HCL 150 MG SUSTAINED RELEASE TAB PO SCH (09:00)
[2017-11-08] MEDS ORDERED: NON-FORMULARY DRUG (Multiple Vitamin (Multi-Vitamin Daily) 1 TAB) PO SCH (09:00)
[2017-11-08] MEDS ORDERED: ENOXAPARIN SODIUM 40 MG/0.4 ML SYRINGE SQ SCH (09:00)
[2017-11-08] MEDS ORDERED: PANTOPRAZOLE SOD 40 MG DELAYED RELEASE TAB PO SCH (09:00)
[2017-11-08] MEDS ORDERED: PNEUMOCOCCAL POLYVALENT INJ 25 MCG/0.5 ML SYR IM ONE (10:00)
[2017-11-08 11:52] VITALS: BP 102/51; PULSE 75; RESP 18; TEMP 98.3; O2SAT 96
--- NOTE | 2017-11-08 15:52 | HHI.PR ---
Subjective Remarks Patient is in bed. Says pain in her knee is controlled by medications. Very well with physical therapy. No nausea or vomiting no diarrhea or constipation is chest pain or shortness. Denies chest pain or shortness of breath. Objective Vitals Vital Signs Date Time Temp Pulse Resp B/P (MAP) Pulse Ox O2 Delivery O2 Flow Rate FiO2 11/08/17 11:52 98.3 75 18 102/51 (68) 96 11/08/17 08:00 99.0 80 18 100/49 (66) 99 11/08/17 04:30 98.0 73 17 106/52 (70) 99 11/08/17 00:15 97.8 65 17 92/55 (67) 98 11/07/17 20:00 97.8 73 17 104/57 (73) 96 11/07/17 18:50 97.6 65 16 103/55 (71) 98 Room Air 11/07/17 18:00 66 16 102/53 (69) 97 Room Air 11/07/17 17:00 67 16 105/52 (69) 96 Room Air 11/07/17 16:00 67 16 103/57 (72) 96 Room Air I/O 11/07/17 11/07/17 11/07/17 11/08/17 11/08/17 11/08/17 07:00 15:00 23:00 07:00 15:00 23:00 Intake Total 2240 ml 240 ml 360 ml Output Total 100 ml Balance 2140 ml 240 ml 360 ml Intake Oral 240 ml 240 ml 360 ml IV Total 2000 ml Output Estimated Blood Loss 100 ml # Voids 1 0 2 # Bowel Movements 0 Result Diagram: 11/08/17 0515 11/08/17 0515 Imaging Last Impressions Knee X-Ray 11/07/17 0655 Signed Impressions: Service Date/Time: Tuesday, November 07, 2017 10:19 - CONCLUSION: Expected postsurgical changes status post arthroplasty. Edgar Bonds MD Objective Remarks GENERAL: This is a well-nourished, well-developed patient, in no apparent distress. CARDIOVASCULAR: Regular rate and rhythm without murmurs, gallops, or rubs. S1- S2 no S3 or S4 RESPIRATORY: Clear to auscultation. Breath sounds equal bilaterally. No wheezes , rales, or rhonchi. GASTROINTESTINAL: Abdomen soft, non-tender, nondistended. No hepato-splenomegaly , or palpable masses. No guarding. MUSCULOSKELETAL: Extremities without clubbing, cyanosis, or edema. No joint tenderness, effusion, or edema noted. No calf tenderness. Negative Homans sign bilaterally. Left lower extremity is in CPM machine NEUROLOGICAL: Awake and alert. Cranial nerves II through XII intact. Motor and sensory grossly within normal limits. Five out of 5 muscle strength in all muscle groups. Normal speech. A/P Problem List: (1) Primary localized osteoarthrosis, lower leg ICD Code: M17.10 - Unilateral primary osteoarthritis, unspecified knee (2) Gastritis ICD Code: K29.70 - Gastritis, unspecified, without bleeding Status: Acute (3) Hypercholesterolemia ICD Code: E78.00 - Pure hypercholesterolemia, unspecified (4) CAD (coronary artery disease) ICD Code: I25.10 - Atherosclerotic heart disease of [place] coronary artery without angina pectoris (5) GERD (gastroesophageal reflux disease) ICD Code: K21.9 - Gastro-esophageal reflux disease without esophagitis (6) Depression ICD Code: F32.9 - Major depressive disorder, single episode, unspecified (7) Anxiety ICD Code: F41.9 - Anxiety disorder, unspecified Assessment and Plan Status post left total knee arthroplasty due to severe osteoarthritis We will defer anticoagulation and pain control to orthopedics Depression and anxiety continue on her home medications GERD continue on her PPI Hypercholesterolemia continue on her home medication Coronary artery disease with history of stent Continue GI and DVT prophylaxis A.m. labs Physical therapy and occupational therapy to eval and treat Code Status Full code Discussed Condition With patient, nurse appears medically stable clear. Can be discharged to follow-up as outpatient with PCP and consultants Jocelyne Clay MD Nov 08, 2017 15:52
[2017-11-08] MEDS ORDERED: MULTIVITAMINS/MINERALS THERAPEUTIC TAB PO SCH (21:00)
[2017-11-08] MEDS ORDERED: DOCUSATE SODIUM 100 MG CAP PO SCH (21:00)
--- NOTE | 2017-11-09 15:21 | MD ---
cc: Kristopher Canseco MD DATE OF DISCHARGE: 11/08/2017 ADMITTING DIAGNOSIS: Severe degenerative osteoarthritis, left knee. DISCHARGE DIAGNOSIS: Severe degenerative osteoarthritis, left knee. HISTORY OF PRESENT ILLNESS: Ms. Casas is a 62-year-old female who is a patient of Dr. Kristopher Canseco at the [facility]. Currently, she is being treated for severe and progressive left knee pain. The patient states the pain has been present for greater than 1-year duration, for which she has received treatment for this ailment. Currently, her pain is inhibiting her activities of daily living. She notes this is severe aching sensation aggravated by weightbearing activities. She has no alleviating factors at this point in time. In the past, she tried medications, bracing, physical therapy, home exercises, as well as corticosteroid injection without relief of symptoms. She does have x-ray evidence of severe degenerative osteoarthritis of the left knee. While in the office, the patient was counseled on diagnosis and treatment options. Risks, benefits, indications were all discussed. Patient did elect to proceed with surgical intervention to include a left total knee arthroplasty. Date of surgery 11/07/2017, left total knee arthroplasty. Postop after surgery, the patient admitted to [facility] where she received appropriate medical management, pain control, DVT prophylaxis, as well as physical therapy. DISCHARGE: Once being discharged from the hospital, the patient has been cleared to go home where she will receive home health care and home physical therapy. She is in stable condition. She may weight bear as tolerated. She has been instructed on wound care and management. The patient has been provided prescriptions for pain control as well as DVT prophylaxis medications. She has also been provided a followup appointment approximately 2 weeks from her date of surgery. The patient has asked appropriate questions, which have been answered. The patient has been discharged. Dictated by RUBI Hall MD BUSHRA Casas/GLENNA , 08:10 AM , 08:26 AM
[2017-11-09 20:42] LABS: HEMOGLOBIN A1C 5.3 % (4.3-6.0)
== END 2017-11-08 14:50 | disposition home health service (06) | DRG 470 ==
LOC: HSDC 05:24 → HSDI 06:57 → EDSTATUS 08:30 → N06B 19:05
PROVIDERS: ADMIT Orthopaedic Surgery Sports Medicine; ATTEND Orthopaedic Surgery Sports Medicine
PROC: 3E0T3BZ Introduction of Anesthetic Agent into Peripheral Nerves and Plexi, Percutaneous Approach (ICD-10-PCS; 2017-11-07)
PROC: 0SRD0J9 Replacement of Left Knee Joint with Synthetic Substitute, Cemented, Open Approach (ICD-10-PCS; principal; 2017-11-07 08:10)
DX: M17.12 Unilateral primary osteoarthritis, left knee (principal); F32.9 Major depressive disorder, single episode, unspecified; I25.10 Atherosclerotic heart disease of native coronary artery without angina pectoris; Z95.5 Presence of coronary angioplasty implant and graft; E78.00 Pure hypercholesterolemia, unspecified; K21.9 Gastro-esophageal reflux disease without esophagitis; F41.9 Anxiety disorder, unspecified; K29.70 Gastritis, unspecified, without bleeding; Z23 Encounter for immunization
CPT/HCPCS: 73560; 80053; 83036; 83735; 84100; 84439; 84443; 85025; 86850; 86900; 86901; 90471; 90732; 94150; C1776; C9290; G0009; J0131; J0690; J0735; J1100; J1580; J1650; J1885; J2250; J2270; J2405; J2795; J3010; J3370; J7030; J7120; L1830

== ENCOUNTER 2018-07-11 08:14 | Inpatient (IN) ==
--- NOTE | 2018-07-04 17:39 | MH ---
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 HISTORY OF PRESENT ILLNESS: The patient is a 62-year-old white female who was seen in the office in May of this year for a second opinion evaluation regarding left hip pain of at least 7 months' duration. She reported at that time that in October, she had undergone a left total knee arthroplasty as completed by Dr. Kristopher Canseco. During her postoperative rehabilitation, she experienced the onset of pain involving her left groin area for which she returned to Dr. Canseco and at that time was treated with a prednisone Dosepak. She was also prescribed additional therapy intervention. Unfortunately, her symptoms became more pronounced and subsequent x-ray studies were completed at which time the patient apparently was advised of having a bony fragmentation of her left hip as related to the presence of bone. She was given the option of undergoing additional injection therapy or proceeding with total hip arthroplasty. Unfortunately, no further disposition was completed and the patient continued to have pain about her hip and groin area for which she was subsequently seen by the undersigned physician. At that time, she reported considerable difficulty with all weightbearing activities. She has been alternating between Tylenol and ibuprofen for pain management. She had previously tried meloxicam, but was not able to tolerate the medication secondary to a lightheaded sensation. She denied prior history of injury involving her left hip area. 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 X-ray studies were completed, the results of which confirmed the presence of a displaced osteochondral fragment involving a significant component of the left femoral head. Findings and treatment options were reviewed with the patient at that time and it was emphasized that the most favorable long-term benefit would come from a total hip arthroplasty, but that the decision to proceed with surgery would be left entirely to the patient's discretion. Initially, the patient indicated that she would not be able to plan for surgery given the responsibilities of her employment and the overall situation at the [employer]. She tried to continue with conservative management requiring use of a cane as a full-time ambulatory aid, but experiencing considerable difficulties with regard to all weightbearing activities. She subsequently returned to the office in followup disposition reporting significant incapacitation and her desire to proceed with operative treatment as had previously been discussed. In compliance with her wishes, she has been scheduled for admission in order left total hip arthroplasty be completed. Her past medical history, hospitalizations and surgeries in addition to her left total knee arthroplasty have included vaginal hysterectomy, tonsillectomy, appendectomy, laparoscopic cholecystectomy, bilateral cataract excision, cardiac stent insertion, I and D procedure of the left hand following an infection secondary to a cat bite and colonoscopy. The patient's medical illnesses include elevated cholesterol, coronary artery disease and GERD syndrome, anxiety and depression. CURRENT MEDICATIONS: 1. She takes an 81 mg aspirin tablet daily. 2. Atorvastatin 80 mg daily. 3. Bupropion hydrochloride XL 300 mg daily. 4. Lorazepam 1 mg 2 tablets twice daily. 5. Protonix 40 mg daily. 6. Multivitamin tablet daily. 7. Calcium with vitamin D daily. ALLERGIES: THE PATIENT DENIES ANY KNOWN DRUG ALLERGIES. REVIEW OF SYSTEMS: She wears glasses. Denies headache, seizure, or syncope. No sinus congestion or epistaxis. Auditory acuity intact. No tinnitus. No bleeding gums or dysphagia. Denies cough, shortness of breath, upper respiratory infection, pneumonia, or tuberculosis. No angina. She is status post cardiac stent insertion. Appetite is described as being fair. Bowel movements regular. There has a positive history for a noninfectious hepatitis status post cholecystectomy. Prior history of hemorrhoids. No urinary tract infection, no kidney stones, no previous fractures. Psychiatric intervention for depression. Remaining review of systems is unremarkable and noncontributory. FAMILY HISTORY: The patient has been a for approximately 5 years. Her at 58 years of age secondary to heart disease. She has 2 sons, both of whom are indicated to be in good health. Family history is otherwise positive for diabetes, heart disease, non-Hodgkin's lymphoma. SOCIAL HISTORY: The patient completed an AA degree. 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 She denies active use of tobacco since 1976, but had been less than a one pack per day user for approximately 3-4 years prior to that time. Ethanol consumption in the form of an occasional glass of red wine. PHYSICAL EXAMINATION: VITAL SIGNS: Height 5 feet 6 inches, weight 153 pounds. GENERAL: An alert, oriented, responsive 62-year-old white female sitting quietly upon the examination table in mild distress as related to pain about her left hip. HEAD, EARS, EYES, NOSE AND THROAT: Pupils are equally round and reactive to light. Extraocular movements full. Sclerae are clear. External nares clear. External auditory canals clear. Dental intact. Mucous membranes pink and moist. Pharynx clear. NECK: Supple. Active range of motion with no appreciable pain. Carotid pulse is palpable bilaterally. Trachea midline. Thyroid without enlargement. LUNGS: Clear to auscultation and percussion. No CVA tenderness. No discomfort throughout the dorsolumbar spine. HEART: Regular rhythm. No murmur or gallop. ABDOMEN: Soft, nontender, bowel sounds present. PELVIC: Per primary care physician. EXTREMITIES: Left hip, there is mild tenderness about the anterior aspect of the hip extending into the groin area. Considerable restricted motion of the hip joint in all ranges assessed with pain at the extreme of motion. Straight leg raising is negative at 60 degrees. Gagan sign is markedly positive. Distal sensory grossly intact. Pronounced antalgic gait with cane support. NEUROLOGIC: Cranial nerves 2-12 grossly intact. IMPRESSION: Idiopathic aseptic necrosis, left femoral head. PLAN: Left total hip arthroplasty. The nature of the planned surgical procedure, the potential complications and risks associated, the expectations of surgery and the consent form have been thoroughly reviewed with the patient prior to her admission to the hospital. Kyra has indicated her full understanding regarding all of the above and given consent to proceed with treatment as outlined. Medical evaluation and clearance for surgery completed by her primary care physician, Dr. Robbins. Anibal Damon MD NBS/ct , 05:02 PM , 05:18 PM
[2018-07-11] MEDS ORDERED: Famotidine PF Inj 20 MG/2 ML Vial ONE (08:43)
[2018-07-11] MEDS ORDERED: fentaNYL Citrate Inj 250 MCG/5 ML Ampul ONE (08:43)
[2018-07-11] MEDS ORDERED: fentaNYL Citrate Inj 100 MCG/2 ML Ampul ONE (08:43)
[2018-07-11] MEDS ORDERED: Sodium Chlor 0.9% Inj 500 ML IV.CONT ONE (08:45)
[2018-07-11] MEDS ORDERED: Chlorhexidine Gluconate 2% 1 Pack (2 Cloths) TOPICAL ONE (08:45)
[2018-07-11] MEDS ORDERED: Metoprolol Tartrate 25 MG Tablet PO ONE (08:45)
[2018-07-11] MEDS ORDERED: Ketamine Inj 50 MG/5 ML Syringe IV.PUSH ONE (08:51)
[2018-07-11] MEDS ORDERED: ceFAZolin 1 GM Premix Inj 2 GM/100 ML FROZ.PIGGY IV.SIG ONE (09:19)
[2018-07-11] MEDS ORDERED: ceFAZolin 2 GM IV; once IV.SIG ONE (09:30)
[2018-07-11] MEDS ORDERED: TRANEXAMIC ACID IV.SIG SCH ×2 (09:30→12:30)
[2018-07-11] MEDS ORDERED: SODIUM CHLOR 0.9% IV.SIG SCH ×2 (09:30→12:30)
[2018-07-11] MEDS ORDERED: Morphine Inj 4 MG/ML Vial IV.PUSH PRN (11:53)
[2018-07-11] MEDS ORDERED: Aluminum/Magnesium/Simethacone Susp 30 ML UDC PO PRN (11:53)
[2018-07-11] MEDS ORDERED: Bisacodyl 10 MG Supp RECTAL PRN (11:53)
[2018-07-11] MEDS ORDERED: Post-op Orders (for Pharmacy) OTHER STA (11:53)
[2018-07-11] MEDS ORDERED: Morphine Inj 30 MG/30 ML PCA.VIAL PCA PRN (11:53)
[2018-07-11] MEDS ORDERED: Naloxone Inj 0.4 MG/ML Vial IV.PUSH PRN (11:53)
[2018-07-11] MEDS ORDERED: Tranexamic Acid Inj 1,000 MG in Sodium Chlor 0.9% Inj 100 ML IV.SIG ONE (11:53)
[2018-07-11] MEDS ORDERED: Acetaminophen 325 MG Tablet PO PRN (11:53)
--- NOTE | 2018-07-11 11:57 | P.DCO ---
- Diagnosis (1) Aseptic necrosis of bone of left hip Status: Acute - Physical Therapy Order: Evaluate and treat, Improve ambulation, Strength and gait training - Home Health Nursing Order: Wound care and dressing changes, Nursing assessment with vital signs - Home Health Aide Order: To assist in: Bathing and personal care, dial maker and meal prep - Gifted Program Teacher Order: To evaluate: Living conditions/environment, Support services Order: To provide: Long range planning, Community services - Case Management Consult Case Management Consult-Home Health: Yes - Certification I have seen patient Kyra Casas on 07/11/18. My clinical findings support the need for the requested home health care services because: Limited ability to care for self, High risk of falls I certify that my clinical findings support that this patient is homebound because: Post-op weakness, Unsteady gait/balance, Unsafe to leave home unassisted
[2018-07-11] MEDS ORDERED: *morphine SULFATE 4 MG/ML PERIprocedure ONLY ONE ×2 (12:00→12:17)
[2018-07-11] MEDS ORDERED: Morphine Inj 30 MG/30 ML PCA.VIAL PCA ONE (12:25)
--- NOTE | 2018-07-11 12:30 | P.CON ---
History of Present Illness Requesting Physician: Anibal Damon Reason for Consult: medical managment Primary Care Provider: Brian Robbins Chief Complaint: Brought in for Left Total hip arthroplasty History of Present Illness: This is a pleasant 61 y/o Female with CAD, Depression/Anxiety, Hyperlipidemia, GERD, On this opportunity she was brought in with Diagnosis of Idiopathic Aseptic Necrosis of the left femoral head, by Doctor Marco Damon, she complaint of left hip pain for the last seven months, treated with Prednisone, Subsequent X ray studies and bony fragmentation of her left hip, brought in today for Total left hip arthroplasty , has history of Left total knee arthroplasty, GORDO, tonsillectomy, Appendectomy, laparoscopic Cholecystectomy Bilateral Cataract surgery, Cardiac stent placement, I and D of the left hand secondary to Infection, Review of Systems All other systems reviewed negative except as stated in HPI PMFSH - History History Provided By: Patient - Medical History Medical History: Medical History (Last Reviewed 07/11/18 @ 08:53 by Serina Vee) Anxiety Arthritis Coronary artery disease Depression GERD (gastroesophageal reflux disease) Hiatal hernia Hx of headache Joint pain Wears glasses - Surgical History Surgical History: Surgical History (Last Reviewed 07/11/18 @ 08:53 by Serina Vee) History of appendectomy History of arthroplasty of left knee History of cardiac cath History of cataract extraction with lens replacement History of cholecystectomy History of colonoscopy History of hand surgery History of heart artery stent History of tonsillectomy History of vaginal hysterectomy - Family History Family History: Family History (Last Updated 07/11/18 @ 12:28 by Pepe Roblero MD) Other Anxiety disorder Family history of hypertension - Tobacco History Second Hand Smoke Exposure: No Smoking Status: Former smoker - Alcohol History How Often Do You Have a Drink Containing Alcohol: 4 or more times a week - Substance Use History Substance History: No History of Abuse - Travel History Recent Travel in the [place] Within the Last 8 Weeks: No Recent Travel Out of the Country Within the Last 8 Weeks: No Medications and Allergies Active Medications: Active Medications Acetaminophen (Tylenol) 650 mg PO Q6H PRN PRN Reason: FEVER > 102 F Al Hydrox/Mg Hydrox/Simethicone (Mag-Al Plus Susp Liq) 30 ml PO Q6H PRN PRN Reason: INDIGESTION Al Hydroxide/Mg Hydroxide (Milk Of Magnesia Liq) 30 ml PO BID PRN PRN Reason: Mild Constipation Aspirin (Aspirin) 325 mg PO BID [facility] Atorvastatin Calcium (Lipitor) 80 mg PO DAILY [facility] Bisacodyl (Dulcolax Supp) 10 mg RECTAL DAILY PRN PRN Reason: SEVERE CONSITIPATION Lactated Ringer's (Lr 1000 Ml Inj) 1,000 mls @ 30 mls/hr IV.CONT .Q24H ONE Stop: 07/12/18 08:44 Last Infusion: 07/11/18 11:27 Dose: Infused Sodium Chloride (Ns Inj) 500 mls @ 30 mls/hr IV.CONT .[id number] ONE Stop: 07/12/18 01:24 Last Admin: 07/11/18 09:14 Dose: Not Given Tranexamic Acid 689 mg/ Sodium (Chloride) 106.89 mls @ 200 mls/hr IV.SIG ONCE [facility] Stop: 07/11/18 15:30 Last Infusion: 07/11/18 10:05 Dose: Infused Tranexamic Acid 689 mg/ Sodium (Chloride) 106.89 mls @ 200 mls/hr IV.SIG ONCE [facility] Stop: 07/11/18 18:30 Cefazolin Sodium 1,000 mg/ (Sodium Chloride) 100 mls @ 200 mls/hr IV.SIG Q6H [facility] Stop: 07/12/18 00:29 Lactated Ringer's (Lr 1000 Ml Inj) 1,000 mls @ 80 mls/hr IV.CONT .[id number] [facility] Morphine Sulfate (Morphine Inj) 30 mg in 30 mls @ 0 mls/hr RESPIRATORY THERAPY TECHNICIAN UNSCH PRN PRN Reason: prn pain Tranexamic Acid 1,000 mg/ (Sodium Chloride) 110 mls @ 200 mls/hr IV.SIG ONCE ONE Stop: 07/11/18 12:25 Lactulose (Lactulose Liq) 30 ml PO DAILY PRN PRN Reason: SEVERE CONSITIPATION Lorazepam (Ativan) 1 mg PO TID M[facility]LE Miscellaneous Information (Misc Nursing Information) 0 each OTHER UNSCH PRN PRN Reason: SEE DOSE INSTRUCTIONS Miscellaneous Information (Misc Nursing Information) 0 each OTHER ONCE ONE Stop: 07/11/18 11:54 Miscellaneous Information (Misc Post-Op Orders (For Pharmacy)) 0 each OTHER STAT STA Stop: 07/11/18 11:54 Morphine Sulfate (Morphine Inj) 2 mg IV.PUSH Q3H PRN PRN Reason: BREAKTHROUGH PAIN Naloxone HCl (Narcan Inj) 0.4 mg IV.PUSH PRN PRN PRN Reason: Resp rate < 10 Non-Formulary Medication (Bupropion Hcl [Bupropion Hcl]) 300 mg PO QAM ON LICENSE OF [facility] Non-Formulary Medication (Calcium Carbonate-Vitamin D3 [Calcium 600 + D(3)]) 1 tab PO DAILY ON LICENSE OF [facility] Non-Formulary Medication (Cksiducsmrnx-Cru-Gcgv-Fa-Vit K [Adults Multivitamin]) 1 tab PO DAILY ON LICENSE OF [facility] Ondansetron HCl (Zofran Inj) 4 mg IV.PUSH Q6H PRN PRN Reason: NAUSEA OR VOMITING Pantoprazole Sodium (Protonix) 40 mg PO DAILY ON LICENSE OF [facility] Povidone Iodine (Betadine 7.5% Scrub) 1 applicatio TOPICAL ONCE ON LICENSE OF [facility] Stop: 07/15/18 08:59 Last Admin: 07/11/18 09:15 Dose: 1 applicatio Senna/Docusate Sodium (Racheal-Colace) 1 tab PO BID ON LICENSE OF [facility] Sennosides (Senokot) 17.2 mg PO BID PRN PRN Reason: Moderate Constipation Sodium Chloride (Ns Flush) 2 ml IV.FLUSH BID ON LICENSE OF [facility] Sodium Chloride (Ns Flush) 2 ml IV.FLUSH PRN PRN PRN Reason: FLUSH AFTER USING IV ACCESS Tramadol HCl (Ultram) 50 mg PO Q4H PRN PRN Reason: PAIN LESS THAN 5 ON SCALE Zolpidem Tartrate (Ambien) 5 mg PO HS PRN PRN Reason: INSOMNIA Allergies Allergy/AdvReac Type Severity Reaction Status Date / Time No Known Allergies Allergy Verified 07/11/18 08:53 Home Medications Medication Instructions Recorded Confirmed Type aspirin [Adult Low Dose Aspirin] 81 mg PO DAILY 07/10/18 07/10/18 History atorvastatin 80 mg PO DAILY 07/10/18 07/11/18 History bupropion HCl 300 mg PO QAM 07/10/18 07/11/18 History calcium carbonate-vitamin D3 1 tab PO DAILY 07/10/18 07/11/18 History [Calcium 600 + D(3)] lorazepam [Ativan] 1 mg PO TID 07/10/18 07/11/18 History hodkydllqbdx-fua-jduf-FA-vit K 1 tab PO DAILY 07/10/18 07/11/18 History [Adults Multivitamin] pantoprazole [Protonix] 40 mg PO DAILY 07/10/18 07/11/18 History Physical Exam Vital signs: Vital Signs 07/11/18 09:03 07/11/18 09:14 Temperature 97.5 F L Pulse Rate 80 Respiratory Rate 16 16 Blood Pressure 133/65 Pulse Oximetry 97 Intake & Output 07/10/18 07/11/18 07/11/18 18:59 06:59 18:59 Intake Total 1656.89 / 1656.89 Output Total 200 / 200 Balance 1456.89 / 1456.89 Weight 68.9 kg Intake: IV 1156.89 / 1156.89 LR 1000 mL Inj 1,000 ML @ 30 1000 / 1000 mls/hr IV.CONT .Q24H ONE Rx#: [id number] Cyklokapron Inj 689 MG In NS 106.89 / 106.89 Inj 100 ML @ 200 mls/hr IV.SIG ONCE [facility] Rx#:[id number] Ancef 2 GM Premix Inj 2 gm In 50 / 50 50 ml @ 100 mls/hr IV.SIG ONCE ONE Rx#:[id number] Anesthesia Amount 500 / 500 Output: Estimated Blood Loss 200 / 200 Other: Weight On Admission 68.9 kg Narrative: GENERAL: This is a well-nourished, well-developed patient, in no apparent distress. CARDIOVASCULAR: Regular rate and rhythm without murmurs, gallops, or rubs. RESPIRATORY: Clear to auscultation. Breath sounds equal bilaterally. No wheezes , rales, or rhonchi. GASTROINTESTINAL: Abdomen soft, non-tender, nondistended. Normal active bowel sounds MUSCULOSKELETAL: Extremities without clubbing, cyanosis, has left hip dressed with Hemovac in place. NEURO: Alert & Oriented x4 to person, place, time, situation. Moves all ext x4 Results - Labs Labs: Laboratory Results - last 24 hr 07/11/18 08:55 Blood Type O Positive Blood Type Recheck Not needed Antibody Screen Negative Assessment and Plan - Plan 1. Idiopathic aseptic necrosis, left femoral head Left total hip arthroplasty. has Hemovac on left hip, PT evaluation, manager corporate communications for discharge Pain medicine, early ambulation 2. CAD by history denies any chest pain 3. Depression/Anxiety disorder to continue Home medicines 4. Hyperlipidemia to continue Home medicines 5. GERD continue Gastric protection. DVT prophylaxis as per Orthopedic surgery. Code Status: Full code. Discussed Condition With: Patient Discharge Planning: As per Attending Physician.
--- NOTE | 2018-07-11 12:42 | MP ---
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 PROCEDURE: Left total hip arthroplasty. SURGEON: Anibal Damon MD ANESTHESIA: General endotracheal. INDICATIONS: This is a 62-year-old white female who presented to the office in May of this year for a second opinion and evaluation regarding left hip pain of approximately 7 months' duration. She reported that in October, she had undergone a left total knee arthroplasty as completed by Dr. Kristopher Canseco. During her postoperative rehabilitation, she experienced the onset of pain involving her left groin area for which she returned to Dr. Canseco at that time and was treated with a prednisone Dosepak. She was also prescribed additional therapy intervention. Unfortunately, her symptoms became more pronounced and subsequent x-ray studies were completed at which time the patient was apparently advised as to having a bony fragmentation of her left hip and was given the option of undergoing an additional injection therapy or proceeding with total hip arthroplasty. Unfortunately, no further disposition was completed and the patient continued to have pain about her hip and groin area for which she was later seen by the undersigned physician. At that time, she reported considerable difficulty with regard to all weightbearing activities. She had been alternating between Tylenol and ibuprofen for pain management. She had previously tried meloxicam, but was unable to tolerate the medication secondary to a lightheaded sensation. She denied any prior history of injury involving her left hip. 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 Her current x-ray studies confirm the presence of a displaced osteochondral fragment involving a significant component of the left femoral head. Findings and treatment options were reviewed with emphasis being made that the most favorable long-term benefit would come from total hip arthroplasty, but that the decision to proceed with surgery with left entirely to the patient's discretion. Initially, the patient indicated she would not be able to plan for surgery given the responsibilities of her employment. She tried to continue with conservative management requiring use of a cane as a full-time ambulatory aid and experiencing considerable difficulties with regard to all weightbearing activities. She subsequently returned to the office in followup disposition reporting significant incapacitation with regard to all activities of daily living and expressing her desire to proceed with operative treatment as had previously been discussed. In compliance with her wishes, she was scheduled for admission at this time in order that total hip replacement be completed. FORMAT: Following the induction of satisfactory general anesthesia by endotracheal intubation as completed per the Department of Anesthesia, the patient was positioned upon the operating table in a right lateral decubitus fashion. The left hip and lower extremity proper were isolated with a U-drape, thereafter being prepped with Betadine solution and draped into a sterile field in the routine manner. Prior to initiation of the actual procedure, the standard timeout protocol was completed. All parameters were appropriately addressed and confirmed by operating room personnel. A standard posterolateral approach to the hip was initiated through a sharp skin incision and developed through underlying subcutaneous tissue with hemostasis maintained by electrocautery. By deepening dissection, the fascia overlying the gluteus musculature was exposed and thereafter sharply incised to the limits of the incision. The underlying gluteus fibers were bluntly divided by progressive dissection. The short external rotators were exposed and identified. The piriformis tendon was utilized as an anatomical landmark and division of these structures was completed in a superior to inferior orientation and reflected medially, exposing the posterior capsule. The sciatic nerve was protected. An L-shaped capsulotomy was accomplished through which a posterior dislocation of the femoral head was completed. Examination revealed a complete delamination of the articular cartilage from the underlying subchondral bone consistent with an aseptic necrosis process. The femoral template was positioned for alignment and orientation. The neck was scored and thereafter divided with power saw, the amputated segment being passed to the back table as surgical specimen. Attention was initially directed to the proximal femur. Cancellous bone was harvested. The tapered reamer was inserted for alignment orientation. Sequential rasping and broaching was accomplished from 7 through 8 mm. The 8 mm stem was determined to be a favorable fit. The calcar stefany was utilized at this stage. Trial component being removed, attention was redirected to the acetabulum. The labrum and reactive soft tissue were sharply excised. Progressive reaming was accomplished from 45 through 51 mm. The 52 trial shell positioned and determined to be satisfactory. With all trial components removed, the wound was copiously irrigated with pulsating antibiotic solution, hemostasis maintained by electrocautery. Harvested cancellous bone was digitally impacted into the depths of the acetabulum and thereafter a 52 mm RingLoc acetabular shell was firmly seated in approximately 45 degrees inclination to the horizontal and slight anteversion. A single 25 mm 6.5 cancellous screw was inserted superiorly to augment fixation. The permanent high wall acetabular liner was attached to the acetabular shell. The size 8 trial femoral broach was repositioned and a trial reduction followed utilizing a 36 mm modular head with -6 mm neck length adaptor. The hip readily reduced and was carried through a passive range of motion with stability demonstrated at 90 degrees flexion and 45 degrees internal rotation. Open dislocation completed, all trial femoral components being removed, the canal was thoroughly irrigated and dried and thereafter, the permanent size 8 Echo Bi-Metric standard femoral stem was firmly seated to which a 36 mm ceramic head with -6 mm neck length adapter attached. Open reduction completed and repeat range of motion again noted stability as previously described. Final irrigation was accomplished, hemostasis maintained by electrocautery. The posterior capsule was repaired with 0 Vicryl suture. Piriformis tendon and short external rotator structures were reapproximated in a similar manner. Hemovac drain tubes were inserted through superior stab wounds. The fascia of the gluteus musculature was reapproximated with a running 0 Vicryl suture. The remaining portion of the wound was closed in layers in the routine manner, skin margins being reapproximated with a running subcuticular 3-0 Vicryl suture over which Steri-Strips were applied. Xeroform gauze and a bulky dry sterile dressing were placed. The patient was repositioned in the supine orientation where an abduction splint was attached. Anesthesia was discontinued. She was thereafter transferred to a hospital bed and returned to the recovery room in satisfactory condition, having tolerated her operative procedure well. Estimated blood loss was approximately 200 mL as determined per Anesthesia. All implants were of the [employer] web interface developer. Anibal Damon MD NBS/ct , 11:46 AM , 12:01 PM
[2018-07-11] MEDS: LORazepam 1 MG Tablet PO SCH ×2 (13:00→18:16)
--- NOTE | 2018-07-11 13:04 | XR ---
EXAM DATE: 07/11/2018 12:54 PM EST AGE/SEX: 62 years / Female INDICATIONS: Post op total left hip replacement. CLINICAL DATA: This is the patient's subsequent encounter. Patient reports that signs and symptoms h ave been present for 1 day and indicates a pain score of 8/10. MEDICAL/SURGICAL HISTORY: Arthritis. Gastroesophageal reflux disease. CAD. Appendectomy. Cho lecystectomy. Tonsillectomy. Hysterectomy. Left knee arthroscopy. COMPARISON: No prior exams available for comparison. FINDINGS: Left total hip arthroplasty present. Hardware appears intact. Alignment is anatomic. Surgical drains present in the adjacent soft tissues. Adjacent pelvis is unremarkable. CONCLUSION: Satisfactory appearance post left FREDERICK Electronically signed by: Humble Saez MD 07/11/2018 1:03 PM EST
[2018-07-11] MEDS: ceFAZolin 1 GM Premix Inj 1 GM/50 ML FROZ.PIGGY IV.SIG SCH ×2 (16:37→22:26)
[2018-07-11] MEDS ORDERED: Zolpidem Tartrate 5 MG Tablet PO PRN (21:00)
[2018-07-11] MEDS: Senna/Docusate Sodium 8.6/50 MG Tablet PO SCH (22:26)
[2018-07-11] MEDS: Aspirin 325 MG Tablet PO SCH (22:26)
[2018-07-12] MEDS: ceFAZolin 1 GM Premix Inj 1 GM/50 ML FROZ.PIGGY IV.SIG SCH (04:29)
[2018-07-12 06:54] LABS: Hematocrit 30.2 % (35.0-46.0); Hemoglobin 10.2 gm/dL (11.6-15.3)
[2018-07-12 07:30] LABS: Anion Gap 7 meq/L (5-15); Blood Urea Nitrogen 10 mg/dL (7-18); Calcium 8.3 mg/dL (8.5-10.1); Carbon Dioxide 28.5 meq/L (21.0-32.0); Chloride 104 meq/L (98-107); Glomerular Filtration Rate Greater Than 89 mL/min (>89); Glucose,Random 110 mg/dL (74-106); Magnesium 2.3 mg/dL (1.5-2.5); Potassium 4.1 meq/L (3.5-5.1); Sodium 139 meq/L (136-145)
--- NOTE | 2018-07-12 08:37 | P.PN ---
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 Patient seen and examined resting in bed in no acute distress. She does report left hip pain. Denies any fevers, chills, nausea, vomiting, diarrhea, cough, shortness of breath or chest pain. Nurse does not report any acute events overnight or this morning. Physical Exam Vital signs: Vital Signs 07/11/18 09:03 07/11/18 09:14 07/11/18 11:40 Temperature 97.5 F L 96.8 F L Pulse Rate 80 79 Respiratory Rate 16 16 16 Blood Pressure 133/65 123/58 L Pulse Oximetry 97 100 07/11/18 12:00 07/11/18 12:02 07/11/18 12:15 Temperature Pulse Rate 73 71 Respiratory Rate 12 12 12 Blood Pressure 126/58 L 121/58 L Pulse Oximetry 99 98 07/11/18 12:30 07/11/18 13:00 07/11/18 13:30 Temperature 97.2 F L Pulse Rate 73 71 74 Respiratory Rate 12 13 12 Blood Pressure 129/63 130/62 128/50 L Pulse Oximetry 97 97 96 07/11/18 14:00 07/11/18 15:00 07/11/18 16:00 Temperature 97.8 F Pulse Rate 79 86 86 Respiratory Rate 12 12 12 Blood Pressure 127/61 122/58 L 110/56 L Pulse Oximetry 94 L 96 95 07/11/18 16:30 07/11/18 17:00 07/11/18 20:00 Temperature 98.0 F 98.3 F Pulse Rate 95 H 90 86 Respiratory Rate 16 12 18 Blood Pressure 122/58 L 110/53 L 100/52 L Pulse Oximetry 97 95 95 07/12/18 00:00 07/12/18 02:30 07/12/18 04:00 Temperature 97.7 F 97.7 F Pulse Rate 83 90 Respiratory Rate 18 18 17 Blood Pressure 103/51 L 102/48 L Pulse Oximetry 96 97 Intake & Output 07/11/18 07/12/18 07/12/18 18:59 06:59 18:59 Intake Total 1706.89 / 1706.89 770 / 770 Output Total 250 / 250 Balance 1456.89 / 1456.89 770 / 770 Weight 68.9 kg 66.7 kg Intake: IV 1206.89 / 1206.89 50 / 50 LR 1000 mL Inj 1,000 ML @ 30 1000 / 1000 mls/hr IV.CONT .Q24H ONE Rx#: [id number] Cyklokapron Inj 689 MG In NS 106.89 / 106.89 Inj 100 ML @ 200 mls/hr IV.SIG ONCE [facility] Rx#:[id number] Ancef 1 GM Premix Inj 1 gm In 50 / 50 50 / 50 50 ml @ 100 mls/hr IV.SIG Q6H [facility] Rx#:[id number] Ancef 2 GM Premix Inj 2 gm In 50 / 50 50 ml @ 100 mls/hr IV.SIG ONCE ONE Rx#:[id number] Oral 720 / 720 Anesthesia Amount 500 / 500 Output: Estimated Blood Loss 200 / 200 Wound Drainage 50 / 50 # 2 Left Hip 50 / 50 Other: # Voids 960 Weight On Admission 68.9 kg Narrative: GENERAL: Well-nourished, well-developed female in no acute distress. SKIN: Warm and dry. Left hip dressing dry and intact. HEAD: Atraumatic. Normocephalic. EYES: Pupils equal and round. No scleral icterus. No injection or drainage. ENT: No nasal bleeding or discharge. Mucous membranes pink and moist. NECK: Trachea midline. No JVD. CARDIOVASCULAR: Regular rate and rhythm. RESPIRATORY: No accessory muscle use. Clear to auscultation. Breath sounds equal bilaterally. GASTROINTESTINAL: Abdomen soft, non-tender, nondistended. + Bowel sounds. MUSCULOSKELETAL: Extremities without clubbing, cyanosis, or edema. No obvious deformities. + Left foot movement, capillary refill less than 3 seconds, normal sensation. NEUROLOGICAL: Awake and alert. No obvious cranial nerve deficits. Motor grossly within normal limits. Normal speech. PSYCHIATRIC: Appropriate mood and affect; insight and judgment normal. Results - Labs CBC & Chem 7: 07/12/18 04:46 07/12/18 04:46 Laboratory Results - last 24 hr 07/11/18 07/12/18 07/12/18 08:55 04:46 04:46 Hgb 10.2 L Hct 30.2 L Sodium 139 Potassium 4.1 Chloride 104 Carbon Dioxide 28.5 Anion Gap 7 BUN 10 Creatinine 0.63 Estimated GFR Greater than 89 Random Glucose 110 H Calcium 8.3 L Magnesium 2.3 Blood Type O Positive Blood Type Recheck Not needed Antibody Screen Negative - Imaging Impressions Hip X-Ray 07/11/18 00:00 CONCLUSION: Satisfactory appearance post left FREDERICK Assessment and Plan - Plan 61-year-old female with past medical history significant for CAD, HLD, GERD, anxiety and depression being followed by Dr. hammond who is complaints of left hip pain. Patient was found to have bony fragments in her left hip and scheduled 07/11 for total left hip arthroplasty. [facility] following for medical management. Idiopathic aseptic necrosis, left femoral head Left total hip arthroplasty. - s/p total left hip arthroplasty 07/11 by - [facility] DC this morning, pain control with oral medications -Physical therapy following, case management assisting with placement to longterm facility CAD HLD - Stable with no chest pain complaints -Continue home medications Depression/Anxiety disorder to continue Home medicine GERD continue Protonix DVT ASA as per Orthopedic surgeon. 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
[2018-07-12] MEDS: Calcium/Vitamin D 250/125 MG Tablet PO SCH (10:07)
[2018-07-12] MEDS: LORazepam 1 MG Tablet PO SCH ×3 (10:08→22:11)
[2018-07-12] MEDS: buPROPion 150 MG 12 HR Tablet PO SCH (10:08)
[2018-07-12] MEDS: Aspirin 325 MG Tablet PO SCH ×2 (10:08→22:07)
[2018-07-12] MEDS: Multivitamin/Minerals Therapeutic Tablet PO SCH (10:08)
[2018-07-12] MEDS: Senna/Docusate Sodium 8.6/50 MG Tablet PO SCH ×2 (17:40→22:07)
--- NOTE | 2018-07-13 08:18 | MD ---
cc: Anibal Damon MD, George MD DATE OF DISCHARGE: 07/13/2018 ADMITTING DIAGNOSIS: Idiopathic aseptic necrosis, left femoral head. DISCHARGE DIAGNOSIS: Idiopathic aseptic necrosis, left femoral head. HISTORY: A 62-year-old white female who was evaluated in the office in May of this year for a second opinion evaluation regarding left hip pain of approximately 7 months' duration. At that time, she reported that in October of the year, she had undergone a left total knee arthroplasty as completed by Dr. Kristopher Canseco and during her postoperative rehabilitation experienced the onset of pain involving her left groin area. She returned to Dr. Canseco at that time and was treated with a prednisone Dosepak. She was also prescribed additional therapy intervention. Unfortunately, her symptoms became more pronounced and subsequent x-ray studies were completed. The patient was apparently advised of having a bony fragmentation about the left hip as related to bone. She was given the option of undergoing additional injection therapy or proceeding with total hip arthroplasty. Unfortunately, no further disposition was completed and the patient continued to have pain about her hip and groin area and was subsequently seen by the undersigned physician. At that time, she reported considerable difficulty regarding all weightbearing activities. She was alternating between Tylenol and ibuprofen for pain management. She previously tried meloxicam, but was unable to tolerate the medication secondary to a lightheaded sensation. She denied any prior history of injury involving her left hip area. 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 She was hampered in this regard because of her hip symptoms. Her x-ray studies did reveal the presence of a displaced osteochondral fragment involving the significant component of the left femoral head. Findings and treatment options were reviewed. The pros and cons of continuing with conservative management versus operative intervention involving total hip arthroplasty were outlined. Emphasis was made regarding the fact that the decision to proceed with surgery would be left entirely to the patient's discretion. Initially, the patient declined surgery given the fact that her job responsibilities would not permit scheduling at that time. Unfortunately, her symptoms persisted. She returned to the office thereafter requesting to be scheduled for surgery as discussed. In compliance with her wishes, she was scheduled for admission at this time in order that the above be accomplished. PHYSICAL EXAMINATION: Physical examination at the time of admission revealed mild tenderness about the anterior aspect of the left hip area extending into the groin region. There was considerable restricted motion of the hip joint in all ranges assessed with pain at the extremes of mobility. Straight leg raising was negative at 60 degrees. Gagan sign is markedly positive. Distal sensory grossly intact. Pronounced antalgic gait. HOSPITAL COURSE: Prior to admission to the hospital, the patient underwent medical evaluation and clearance for surgery as completed by the primary care physician, Dr. Robbins. She was taken to the operating room on 07/11/2018 and on that date underwent a left total hip arthroplasty completed in an uncomplicated manner. The patient was noted to have tolerated her operative procedure well. Her postoperative course was stable thereafter. Hemoglobin and hematocrit assessment postoperatively was 10.2 and 30.2 respectively. The patient was progressively mobilized under the guidance of physical therapy being permitted weightbearing to tolerance about the left lower extremity. Followup examination of the surgical wound noted to be intact, healing favorably with no evidence of infection. Medical followup per the hospitalist service. DVT prophylaxis initiated. Urology Surgeon consulted to assist with discharge planning. The patient had expressed her desire to be transferred to a rehab facility for continued mobilization upon discharge from the hospital. Plans were finalized in this regard and pending medical clearance, she was scheduled for discharge on the second postoperative day, at which time she was noted to making favorable progress with regard to initial rehabilitation program. She was scheduled to be seen in office followup in approximately 4 weeks. CONDITION AT THE TIME OF DISCHARGE: Stable. PROGNOSIS: Favorable. DISCHARGE MEDICATIONS: Included Tramadol 50 mg, #30, aspirin 325 mg 1 tab twice daily for 4 weeks, #60. MD CECILE Adkins/sv , 06:52 AM , 07:01 AM
[2018-07-13] MEDS: Multivitamin/Minerals Therapeutic Tablet PO SCH (09:59)
[2018-07-13] MEDS: LORazepam 1 MG Tablet PO SCH ×3 (09:59→18:19)
[2018-07-13] MEDS: Calcium/Vitamin D 250/125 MG Tablet PO SCH (09:59)
[2018-07-13] MEDS: Aspirin 325 MG Tablet PO SCH (09:59)
[2018-07-13] MEDS: buPROPion 150 MG 12 HR Tablet PO SCH (09:59)
[2018-07-13 11:45] VITALS: RESP 18
--- NOTE | 2018-07-13 12:34 | P.PN ---
Subjective Interval history: Follow-up visit for left hip surgery. Patient seen and examined sitting up in bed in no acute distress with physical therapist at bedside. She reports pain is well controlled and denies any fevers, chills, nausea, vomiting or diarrhea. Took laxative this morning for constipation. Plan is for discharge to long-term and rehab. Physical Exam Vital signs: Vital Signs 07/12/18 20:55 07/13/18 00:10 07/13/18 04:40 Temperature 98.6 F 98.3 F 98.3 F Pulse Rate 82 82 81 Respiratory Rate 17 17 17 Blood Pressure 117/56 L 108/51 L 113/52 L Pulse Oximetry 96 97 94 L 07/13/18 08:00 07/13/18 11:44 Temperature 98.4 F 98.0 F Pulse Rate 89 78 Respiratory Rate 17 18 Blood Pressure 105/52 L 113/53 L Pulse Oximetry 93 L 98 Intake & Output 07/12/18 07/13/18 07/13/18 18:59 06:59 18:59 Intake Total 1720 / 1720 Balance 1720 / 1720 Weight 67.2 kg Intake: IV 1000 / 1000 LR 1000 mL Inj 1,000 ML @ 80 1000 / 1000 mls/hr IV.CONT .[id number] [facility] Rx# :[id number] Oral 720 / 720 Other: # Voids 3 Date of Last Bowel Movement 07/10/18 07/10/18 07/13/18 # Bowel Movements 0 Narrative: GENERAL: Well-nourished, well-developed female in no acute distress. SKIN: Warm and dry. Left hip dressing dry and intact. HEAD: Atraumatic. Normocephalic. EYES: No scleral icterus. No injection or drainage. ENT: No nasal bleeding or discharge. Mucous membranes pink and moist. NECK: Trachea midline. CARDIOVASCULAR: Regular rate and rhythm. RESPIRATORY: No accessory muscle use. Clear to auscultation. Breath sounds equal bilaterally. GASTROINTESTINAL: Abdomen soft, non-tender, nondistended. + Bowel sounds. MUSCULOSKELETAL: Extremities without clubbing, cyanosis, or edema. No obvious deformities. + Left foot movement, capillary refill less than 3 seconds, normal sensation. NEUROLOGICAL: Awake and alert. No obvious cranial nerve deficits. Motor grossly within normal limits. Normal speech. PSYCHIATRIC: Appropriate mood and affect; insight and judgment normal. Results - Labs CBC & Chem 7: 07/12/18 04:46 07/12/18 04:46 Assessment and Plan - Plan 61-year-old female with past medical history significant for CAD, HLD, GERD, anxiety and depression being followed by Dr. hammond who is complaints of left hip pain. Patient was found to have bony fragments in her left hip and scheduled 07/11 for total left hip arthroplasty. [facility] following for medical management. Idiopathic aseptic necrosis, left femoral head Left total hip arthroplasty. - s/p total left hip arthroplasty 07/11 by -Pain well controlled. -Physical therapy following, case management assisting with placement to close to nursing and rehab. CAD HLD - Stable with no chest pain complaints -Continue home medications on DC Depression/Anxiety disorder to continue Home medicine GERD continue Protonix DVT ASA as per Orthopedic surgeon. Discharge Planning: Patient to be DC to [facility] today.
[2018-07-13] MEDS: Senna/Docusate Sodium 8.6/50 MG Tablet PO SCH (13:57)
[2018-07-13 15:58] VITALS: BP 102/52; PULSE 77; TEMP 97.4; O2SAT 97
== END 2018-07-13 18:13 ==
LOC: HSDI 08:14 → N06 16:48
PROVIDERS: ADMIT Orthopaedic Surgery; ATTEND Orthopaedic Surgery